=== PATIENT | female | born 1970 | race Hispanic/Latino ===

== ENCOUNTER → 2023-12-01 | Day surgery (SDC) | payer BC ==
[~2023-12-01] MED LIST: ALIGN4 MG PO; DEXMEDETOMIDINE HCL 200 MCG/2 ML VIAL ONE; LIDOCAINE HCL 2% LOCAL INJ 5 ML SDV VIAL INJ ONE; OXYBUTYNIN CHLOR5 MG PO; OZEMPIC0.25 MG/02 SC; PROPOFOL IV EMULSION 10 MG/ML 50 ML VIAL IV ONE
[2023-12-01] MEDS: LACTATED RINGER'S 1,000 ML ONE (09:00)
[2023-12-01 11:53] VITALS: TEMP 97.2
[2023-12-01 12:40] VITALS: BP 133/86; PULSE 60; RESP 16; O2SAT 98
== END | disposition home or self-care (01) ==
LOC: OR 08:13
PROVIDERS: ATTEND Internal Medicine Gastroenterology
DX: K59.00 Constipation, unspecified (principal); D12.5 Benign neoplasm of sigmoid colon; K63.89 Other specified diseases of intestine; K64.8 Other hemorrhoids; Z88.6 Allergy status to analgesic agent; Z88.0 Allergy status to penicillin; Z01.810 Encounter for preprocedural cardiovascular examination; Z79.85 Long-term (current) use of injectable non-insulin antidiabetic drugs
CPT/HCPCS: 45385; 93005; J7121; 45378; J2001